=== PATIENT | female | born 1990 | race Caucasian/White ===

== ENCOUNTER 2020-04-27 09:08 | Outpatient (CLI) | payer BC, OTHER ==
[2020-04-28 11:37] LABS: SARS-CoV-2 MS2 Positive; SARS-CoV-2 N Gene Negative; SARS-CoV-2 S Gene Negative; SARS-CoV-2 orf1ab Negative
== END 2020-04-27 09:09 | disposition home or self-care (01) ==
LOC: SCSLAB 09:08
PROVIDERS: ATTEND Obstetrics & Gynecology
DX: Z01.812 Encounter for preprocedural laboratory examination (principal); Z11.59 Encounter for screening for other viral diseases
CPT/HCPCS: 87635; U0003

== ENCOUNTER 2020-05-01 19:15 | Inpatient (IN) | payer BC ==
[~2020-05-01 19:15] MED LIST: Bupivacaine HCl 0.5%/Epinephrine 1:200,000/PF 30 ml Vial ONE; Bupivacaine/Epinephrine 0.25% 30 ML VIAL ONE; Lidocaine 2% MPF 10 ML AMP (For Epidural Use) ONE
[2020-05-01] MEDS ORDERED: Ibuprofen 800 MG TAB PO PRN (20:44)
[2020-05-01] MEDS ORDERED: hydrALAZINE 20 MG/ML VIAL SLOW IVP PRN (20:44)
[2020-05-01] MEDS ORDERED: Lidocaine 1% (PF) 30 ML VIAL SC PRN (20:44)
[2020-05-01] MEDS ORDERED: Misoprostol 100 MCG TAB VAG SCH (20:44)
[2020-05-01] MEDS ORDERED: Ondansetron PF 4 MG/2 ML Vial IVP PRN (20:44)
[2020-05-01] MEDS ORDERED: Promethazine HCl 25 MG/ML VIAL IM PRN (20:44)
[2020-05-01] MEDS ORDERED: NS w/ Oxytocin 10 units 500 ML IV SCH (20:44)
[2020-05-01] MEDS ORDERED: HYDROcodone/Acetaminophen 5/325 mg Tablet PO PRN ×2 (20:44)
[2020-05-01 21:29] LABS: Hemoglobin 10.1 g/dL (12.0-16.0); Mean Corpuscular HGB CONC 34.1 g/dL (32.0-36.0); Mean Corpuscular Hemoglobin 27.6 pg (27.0-31.0); Mean Corpuscular Volume 81.2 fL (78.0-98.0); Mean Platelet Volume 9.7 fL (7.4-10.4); Platelet Count 192 thou/uL (130-400); Red Blood Cell (RBC) Count 3.67 mill/uL (4.20-5.40); White Blood Cell (WBC) Count 10.3 thou/uL (4.8-10.8)
[2020-05-01 22:13] LABS: Syphilis Antibody Nonreactive (Nonreactive); Syphilis Antibody Index 0.04 S/CO (<1.00 Non-Reactive)
[2020-05-01 23:35] LABS: HBSAg Index 0.12 S/CO (0-0.99); Hep B Surf Ag Non-Reactive S/CO (NonReactive)
[2020-05-01 23:39] VITALS: BMI 24.0
[2020-05-02] MEDS: Misoprostol 100 MCG TAB VAG SCH ×4 (01:07→21:25)
[2020-05-02] MEDS: Butorphanol Tartrate 1 MG/ML VIAL SLOW IVP PRN ×3 (03:19→08:05)
[2020-05-02] MEDS ORDERED: Fentanyl 4 mcg/Bup 0.1% Cadd 100 ML ONE ×2 (08:09→14:49)
--- NOTE | 2020-05-02 12:42 | PDOC.LDPN ---
Labor & Delivery Progress Note - Subjective Subjective: comfortable - Objective Vital signs reviewed and normal: yes Dilation: 5 Effacement: 90% Station: 1+ FHT: category 1 AROM: clear fluid - Assessment (1) 40 weeks gestation of Code(s): Z3A.40 - 40 WEEKS GESTATION OF Current Visit: Yes Status : Acute Plan: continue plan of care
--- NOTE | 2020-05-02 16:26 | PDOC.LDPN ---
Labor & Delivery Progress Note - Subjective Subjective: comfortable - Objective General: resting Dilation: 7 Effacement: 90% Station: 1+ FHT: category 1 - Assessment (1) 40 weeks gestation of Code(s): Z3A.40 - 40 WEEKS GESTATION OF Current Visit: Yes Status : Acute Plan: continue plan of care
[2020-05-02] MEDS ORDERED: NS / Oxytocin 40 units/1000ml 1,000 ML ONE (19:13)
[2020-05-02] MEDS ORDERED: Lidocaine 1% (PF) 30 ML VIAL ONE (19:13)
[2020-05-02] MEDS: NS / Oxytocin 40 units/1000ml 1,000 ML IV PRN ×2 (20:00→21:24)
--- NOTE | 2020-05-02 20:09 | PDOC.OPDEL ---
OB Operative/Delivery Note Delivery Dr/Surgeon: Godfrey Pre-Delivery Diagnosis: elective induction Procedure/Post Delivery Dx: spontaneous vaginal delivery Weeks gestation: 39 Anesthesia: epidural - Findings A Sex: female - Additional Findings/Plan Placenta delivered: spontaneous Repaired Obstetrical Laceration: 2nd degree Estimated blood loss: 150ml Post delivery plan: routine recovery
[2020-05-02] MEDS ORDERED: Milk Of Magnesia 30 ML UDCUP PO PRN (23:16)
[2020-05-02] MEDS ORDERED: NS / Oxytocin 40 units/1000ml 1,000 ML IV SCH (23:16)
[2020-05-02] MEDS ORDERED: Preparation H Ointment 28 GM TUBE PR PRN (23:16)
[2020-05-02] MEDS ORDERED: hydrALAZINE 20 MG/ML VIAL SLOW IVP PRN (23:16)
[2020-05-02] MEDS ORDERED: diphenhydrAMINE 25 MG CAP PO PRN (23:16)
[2020-05-02] MEDS ORDERED: Bisacodyl 10 MG SUPP PR PRN (23:16)
[2020-05-02] MEDS ORDERED: Benzocaine-Menthol 82.5 ML CAN TOP PRN (23:16)
[2020-05-02] MEDS ORDERED: Ondansetron PF 4 MG/2 ML Vial IVP PRN (23:16)
[2020-05-02] MEDS ORDERED: Lanolin Ointment 7 GM TUBE TOP PRN (23:16)
[2020-05-02] MEDS ORDERED: HYDROcodone/Acetaminophen 5/325 mg Tablet PO PRN ×2 (23:16)
[2020-05-03] MEDS: Ibuprofen 800 MG TAB PO SCH ×3 (06:10→21:37)
--- NOTE | 2020-05-03 08:13 | PDOC.PP ---
Post Progress Note Post Day #: 1 Subjective: doing very well, minimal discomfort, working through latch issues on right side , minimal lochia PO intake tolerated: yes Flatus: yes Ambulation: yes Vital Signs (12 hours) Temp Pulse Resp BP Pulse Ox 05/03/20 05:30 98.6 F 72 15 111/69 05/03/20 00:45 99.5 F 80 15 114/68 05/02/20 23:45 99.2 F 78 15 107/65 05/02/20 22:45 99.6 F 68 17 101/65 97 Weight Weight 168 lb - Physical Examination General: NAD Respiratory: non-labored breathing Abdominal: no distention Psychiatric: A&Ox3, normal affect Result Diagrams: 05/01/20 21:20 Additional Labs: Post Labs Blood Type O NEGATIVE 05/01/20 21:57 Hep Bs Antigen Non-Reactive S/CO (NonReactive) 05/01/20 21:19 (1) 40 weeks gestation of Code(s): Z3A.40 - 40 WEEKS GESTATION OF Status: Acute (2) Vaginal delivery Code(s): O80 - ENCOUNTER FOR FULL-TERM UNCOMPLICATED DELIVERY Status: Acute - Assessment/Plan PPD1 doing well, likely DC tomorrow.
[2020-05-03] MEDS: Ferrous Sulfate 325 MG TAB PO SCH ×2 (08:38→14:23)
[2020-05-03] MEDS ORDERED: Adacel (T-DAP) 0.5 ML SYRINGE IM ONE (09:00)
[2020-05-03] MEDS: Docusate Calcium (SURFAK) 240 MG CAP PO SCH ×2 (09:05→21:37)
[2020-05-03] MEDS: Prenatal Vitamin 1 TAB PO SCH (09:05)
[2020-05-03 22:46] VITALS: TEMP 98.5
[2020-05-04] MEDS: Ibuprofen 800 MG TAB PO SCH ×2 (06:33→08:42)
[2020-05-04] MEDS: Ferrous Sulfate 325 MG TAB PO SCH (07:10)
[2020-05-04] MEDS: Prenatal Vitamin 1 TAB PO SCH (08:33)
[2020-05-04] MEDS: Docusate Calcium (SURFAK) 240 MG CAP PO SCH (08:33)
[2020-05-04 08:51] VITALS: BP 134/82
== END 2020-05-04 12:45 | disposition home or self-care (01) | DRG 807 ==
LOC: L&D 19:26 → 3SW 05-02 22:48
PROVIDERS: ADMIT Obstetrics & Gynecology; ATTEND Obstetrics & Gynecology
PROC: 10907ZC Drainage of Amniotic Fluid, Therapeutic from Products of Conception, Via Natural or Artificial Opening (ICD-10-PCS; 2020-05-01)
PROC: 3E033VJ Introduction of Other Hormone into Peripheral Vein, Percutaneous Approach (ICD-10-PCS; 2020-05-01)
PROC: 10E0XZZ Delivery of Products of Conception, External Approach (ICD-10-PCS; principal; 2020-05-02)
PROC: 0KQM0ZZ Repair Perineum Muscle, Open Approach (ICD-10-PCS; 2020-05-02)
DX: O70.1 Second degree perineal laceration during delivery (principal); Z37.0 Single live birth; Z3A.39 39 weeks gestation of pregnancy
CPT/HCPCS: 36415; 51702; 85027; 86780; 86850; 86870; 86900; 86901; 87340; J0595; J0670; J2001; J2590

== ENCOUNTER 2021-04-01 10:21 | Outpatient (CLI) | payer BC ==
[2021-04-01 11:00] LABS: #Monocytes 0.4 10x3/uL (0.0-1.1); #Neutrophils 4.8 10x3/uL (1.5-8.4); %Basophils 0.4 % (0.0-2.0); %Eosinophils 0.5 % (0.0-6.0); %Monocytes 5.5 % (0.0-10.0); %Neutrophils 61.3 % (40.0-75.0); Hemoglobin 13.4 g/dL (12.0-15.5); Mean Corpuscular HGB CONC 32.1 g/dL (32.0-36.0); Mean Corpuscular Hemoglobin 28.5 pg (27.0-33.0); Mean Corpuscular Volume 88.7 fl (81.6-98.3); Platelet Count 190 10x3/uL (150-450); RBC Distribution Width 12.4 % (11.5-14.5); Red Blood Cell (RBC) Count 4.71 10x6/uL (3.90-5.03); White Blood Cell (WBC) Count 7.9 10x3/uL (3.5-10.5)
[2021-04-01 11:40] LABS: Anion Gap 13 mmol/L (10-20); BHCG - Serum Negative (NEGATIVE); BUN (Urea Nitrogen) 15 mg/dL (7.0-18.7); Calc. Creatinine Clearance 0 mL/min (70-130); Calcium 9.8 mg/dL (7.8-10.44); Carbon Dioxide 26 mmol/L (22-29); Chloride 103 mmol/L (98-107); Glucose 87 mg/dL (70-105); Potassium 4.2 mmol/L (3.5-5.1); Pregs Control Background? CLEAR/WHITE (CLR/WHITE); Pregs Control Bar Appear? YES (CONTROL BAR); Sodium 138 mmol/L (136-145)
[2021-04-01 17:52] LABS: SARS-CoV-2 PCR by NAA Not Detected (NotDetected)
== END 2021-04-01 10:22 | disposition home or self-care (01) ==
LOC: LABBT 10:21
PROVIDERS: ATTEND Surgery
DX: Z01.812 Encounter for preprocedural laboratory examination (principal); K42.9 Umbilical hernia without obstruction or gangrene; Z20.822 Contact with and (suspected) exposure to COVID-19
CPT/HCPCS: 80048; 84703; 85025; 87635; U0003; U0005

== ENCOUNTER 2021-04-04 08:41 | Day surgery (SDC) | payer BC ==
[2021-04-03 09:44] VITALS: BMI 18.1
[2021-04-04] MEDS ORDERED: Levofloxacin 500 mg/D5W 100 ml Premix Bag ONE (09:43)
[2021-04-04] MEDS ORDERED: Midazolam HCl 2 mg/2 ml Vial ONE ×2 (09:48→10:01)
[2021-04-04] MEDS ORDERED: Lidocaine 1% w/Epinephrine 1:100K 20 ML VIAL ONE (09:52)
[2021-04-04] MEDS ORDERED: Bupivacaine 0.25% HCL 30 ML VIAL ONE (09:52)
[2021-04-04] MEDS ORDERED: Fentanyl 100 MCG/2 ML VIAL ONE ×2 (10:01→11:00)
[2021-04-04] MEDS ORDERED: Ketorolac Tromethamine 30 MG/ML VIAL ONE (10:11)
[2021-04-04] MEDS ORDERED: Lidocaine 1% PF 5 ML VIAL ONE (10:11)
[2021-04-04] MEDS ORDERED: Scopolamine 1.5 mg/72 hour Patch ONE (10:11)
[2021-04-04] MEDS ORDERED: Ondansetron PF 4 MG/2 ML Vial ONE (10:11)
[2021-04-04] MEDS ORDERED: Dexamethasone 20 MG/5 ML VIAL ONE (10:11)
[2021-04-04] MEDS ORDERED: Metoclopramide HCl 10 MG/2 ML VIAL ONE (10:11)
[2021-04-04] MEDS ORDERED: PHENYLEPHRINE-NS 100 MCG/ML 10 ML SYRINGE ONE (10:11)
[2021-04-04] MEDS ORDERED: PROPOFOL 200 MG/20 ML VIAL ONE (10:11)
[2021-04-04] MEDS ORDERED: Glycopyrrolate 0.2 MG/ML 5 ML SYRINGE ONE (10:11)
[2021-04-04] MEDS ORDERED: Rocuronium Bromide 10 MG/ML (10ML VIAL) ONE (10:11)
[2021-04-04] MEDS ORDERED: Meperidine HCl/PF 25 MG/ML VIAL ONE (10:46)
== END 2021-04-04 12:51 | disposition home or self-care (01) ==
LOC: SDC 08:41
PROVIDERS: ATTEND Surgery
PROC: 0WUF0JZ Supplement Abdominal Wall with Synthetic Substitute, Open Approach (ICD-10-PCS; principal; 2021-04-04)
DX: K42.9 Umbilical hernia without obstruction or gangrene (principal); J45.909 Unspecified asthma, uncomplicated; Z79.899 Other long term (current) drug therapy; Z88.1 Allergy status to other antibiotic agents
CPT/HCPCS: J1100; J1885; J1956; J2175; J2250; J2405; J2704; J2765; J3010; S0020